=== PATIENT | male | born 1985 ===

== ENCOUNTER 2020-12-21 12:18 | Emergency (ER) | payer SELFPAY ==
[2020-12-21] MEDS ORDERED: Lidocaine 2% Viscous Solution 15 ML Cup TOP ONE (12:36)
[2020-12-21] MEDS ORDERED: Lidocaine 1% 30 ML SDV INJECT ONE (12:36)
[2020-12-21] MEDS ORDERED: Diphtheria,Pertussis(Acell),Tetanus Vaccine 0.5 ML Syringe IM ONE (12:37)
--- NOTE | 2020-12-21 13:46 | EDM.PDOC ---
ED HPI GENERAL MEDICAL PROBLEM - General Chief Complaint: Laceration Stated Complaint: CUT TIP OF LEFT THUMB Time Seen by Provider: 12/21/20 13:00 Source of Information: Reports: Patient History Limitations: Reports: No Limitations - History of Present Illness INITIAL COMMENTS - FREE TEXT/NARRATIVE: 35 y/o M c/o L thumb laceration/avulsion after smashing it with a metal bar at work an hour ago. No loc. Bleeding was controlled with pressure and rag. Denies other injury. Pn is currently 06/01. Denies loss of function, db, cp, fever, cough, chills, drugs, etoh. Onset: Today, Sudden Duration: Hour(s): Quality: Reports: Ache Severity: Mild Improves with: Reports: None Worsens with: Reports: None Left Finger-Thumb Pain Score (Numeric/FACES): 8 - Related Data Allergies Allergy/AdvReac Type Severity Reaction Status Date / Time No Known Allergies Allergy Verified 12/21/20 12:38 Home Meds: Home Meds . [No Known Home Meds] 12/21/20 [History] Past Medical History - Past Health History Medical/Surgical History: Denies Medical/Surgical History - Infectious Disease History Infectious Disease History: Reports: None Social & Family History - Recreational Drug Use Recreational Drug Use: No ED ROS GENERAL - Review of Systems Review Of Systems: Comprehensive ROS is negative, except as noted in HPI. ED EXAM, SKIN/RASH Exam: See Below Exam Limited By: No Limitations General Appearance: Alert Respiratory/Chest: No Respiratory Distress, Lungs Clear, Normal Breath Sounds, No Accessory Muscle Use, Chest Non-Tender Cardiovascular: Normal Peripheral Pulses, Regular Rate, Rhythm, No Edema, No Gallop, No JVD, No Murmur, No Rub Extremities: Other (laceration/evulsion of the distal L thumb. cms intact.) ED SKIN PROCEDURES - Laceration/Wound Repair Left Distal Digit - 1st (Thumb) Appearance: Superficial Distal NVT: Neuro & Vascular Intact Anesthetic Type: Digital Local Anesthesia - Lidocaine (Xylocaine): 1% Plain Local Anesthetic Volume: Other (7cc) Skin Prep: Saline Closed with: Sutures Lac/Wound length In cm: 2.5 Suture Size: 5-0 Suture Type: Interrupted Course - Vital Signs Last Recorded V/S: Last Vital Signs Temp 99.6 F 12/21/20 12:34 Pulse 70 12/21/20 13:29 Resp 20 12/21/20 13:29 BP 196/104 H 12/21/20 13:29 Pulse Ox 98 12/21/20 13:29 - Orders/Labs/Meds Orders: Active Orders 24 hr Category Date Time Status Vaccines to be Administered [RC] PER UNIT ROUTINE Care 12/21/20 12:37 Active Fingers Thumb Lt FA [CR] Stat Exams 12/21/20 13:36 Ordered Meds: Medications Discontinued Medications Generic Name Dose Route Start Last Admin Trade Name Cesar PRN Reason Stop Dose Admin Diphtheria/Tetanus/Acell Pertussis 0.5 ml 12/21/20 12:37 12/21/20 12:58 Diphtheria,Pertussis(Acell),Tetanus Vaccine 0.5 Ml Syringe IM 12/21/20 12:38 0.5 ml .ONCE ONE Administration Lidocaine HCl 15 ml 12/21/20 12:36 12/21/20 12:43 Lidocaine 2% Viscous Solution 15 Ml Cup TOP 12/21/20 12:37 15 ml ONETIME ONE Administration Lidocaine HCl 30 ml 12/21/20 12:36 12/21/20 12:52 Lidocaine 1% 30 Ml Sdv INJECT 12/21/20 12:37 30 ml ONETIME ONE Administration Departure - Departure Time of Disposition: 13:49 Disposition: Home, Self-Care 01 Clinical Impression: Laceration of thumb with damage to nail Qualifiers: Encounter type: initial encounter Foreign body presence: without foreign body Laterality: left Qualified Code(s): S61.112A - Laceration without foreign body of left thumb with damage to nail, initial encounter - Discharge Information *PRESCRIPTION DRUG MONITORING PROGRAM REVIEWED*: Not Applicable *COPY OF PRESCRIPTION DRUG MONITORING REPORT IN PATIENT CORDELIA: Not Applicable Instructions: Laceration Care, Adult, [id number] Forms: ED Department Discharge Additional Instructions: RX; Keflex Leave stitches in for 10-14 days. Use tylenol or Mortin for pain. Keep wound clean and dry for the first 24 hrs. Sepsis Event Note (ED) - Focused Exam Vital Signs: Vital Signs Temp Pulse Resp BP Pulse Ox 12/21/20 13:29 70 20 196/104 H 98 12/21/20 12:34 99.6 F 92 18 188/102 H 97
--- NOTE | 2020-12-21 14:09 | CR ---
EXAMINATION: 2 views Thumb Lt FA SEX: Male AGE: 35 years CLINICAL HISTORY: 35-year-old male with crush injury distal left thumb. Interpretation: 1. No foreign bodies. 2. Soft tissue avulsion distal "pad" left thumb. 3. *Subtle cortical "break" and tiny nondisplaced bone fragment terminal tuft distal phalanx left thumb. 3. No sign of other fracture. No dislocation of the first carpal-metacarpal, metacarpophalangeal or DIP joints left thumb.
== END 2020-12-21 14:27 | disposition home or self-care (01) ==
LOC: DL.ED 12:18
DX: S61.112A Laceration without foreign body of left thumb with damage to nail, initial encounter (principal); Z23 Encounter for immunization; W26.8XXA Contact with other sharp object(s), not elsewhere classified, initial encounter; Y99.0 Civilian activity done for income or pay
CPT/HCPCS: 12001; 73140; 90471; 90715; 99283; A9270